=== PATIENT | male | born 2000 | race Two or more races ===

== ENCOUNTER 2023-08-12 16:40 | Emergency (ER) | payer MEDICAID, OTHER ==
[2023-08-12 17:27] VITALS: BP 129/75; PULSE 98; RESP 18; TEMP 97.7; O2SAT 98
[2023-08-12] MEDS ORDERED: LIDOCAINE 1% HCL (LOCAL ANESTH.) INJ 20ML MDV IJ ONE (17:30)
[2023-08-12] MEDS ORDERED: CEPH500C PO (17:38)
[2023-08-12] MEDS ORDERED: TETANUS-DIPTH-ACEL PERTUSSIS 0.5ML SYR Tdap IM ONE (17:45)
== END 2023-08-12 17:51 | disposition home or self-care (01) ==
LOC: ER 16:40
DX: S61.512A Laceration without foreign body of left wrist, initial encounter (principal); Z79.899 Other long term (current) drug therapy; W25.XXXA Contact with sharp glass, initial encounter; Y93.89 Activity, other specified; Y92.89 Other specified places as the place of occurrence of the external cause; Y99.8 Other external cause status
CPT/HCPCS: 12002; 90471; 90715; 99283; J2001

== ENCOUNTER 2023-08-22 14:13 | Emergency (ER) | payer MEDICAID ==
[~2023-08-22 14:13] MED LIST: CEPH500C PO
== END 2023-08-22 17:24 | disposition left against medical advice (07) ==
LOC: ER 14:13
DX: Z48.01 Encounter for change or removal of surgical wound dressing (principal); Z53.21 Procedure and treatment not carried out due to patient leaving prior to being seen by health care provider

== ENCOUNTER 2023-08-23 11:53 | Emergency (ER) | payer MEDICAID ==
[~2023-08-23] VITALS: Ht 188 cm; Wt 84.0 kg
[2023-08-23 11:53] VITALS: BP 109/79; PULSE 73; RESP 16; O2SAT 100
== END 2023-08-23 15:34 | disposition home or self-care (01) ==
LOC: ER 11:53
DX: S61.512D Laceration without foreign body of left wrist, subsequent encounter (principal); Z48.02 Encounter for removal of sutures; X58.XXXD Exposure to other specified factors, subsequent encounter